=== PATIENT | female | born 1955 | race Caucasian/White ===

== ENCOUNTER → 2017-09-24 | Outpatient (CLI) | payer BC | END | disposition home or self-care (01) | LOC: KCIC MAMMO 11:33 | DX: Z12.31 Encounter for screening mammogram for malignant neoplasm of breast (principal); R05 Cough; Z87.891 Personal history of nicotine dependence | CPT/HCPCS: 71046; 77067 ==

== ENCOUNTER → 2018-04-22 | Outpatient (CLI) | payer MEDICARE ==
[2015-06-11 23:24] VITALS: BP 154/73
--- NOTE | 2018-04-22 14:13 | KCIC ---
CT of the chest without contrast 04/22/2018 INDICATION: Chronic cough COMPARISON STUDY: Chest radiograph September 24, 2017 TECHNIQUE: Multidetector CT imaging of the chest was performed without the administration of contrast. DOSING PQRS STATEMENT: One or more of the following individualized dose reduction techniques were utilized for this examination: 1. Automated exposure control 2. Adjustment of the mA and/or kV according to patient size 3. Use of iterative reconstruction technique FINDINGS: Heart size is normal. No pericardial effusion is identified. No pathologically enlarged mediastinal adenopathy is seen. Coronary calcification is noted. Centrilobular emphysematous changes are noted throughout the lungs. Subpleural blebs are noted in the right lung apex. No pneumothorax, pleural effusion, or acute appearing infiltrate is identified. A tiny 2 mm noncalcified nodule is seen in the right lower lobe (axial image 42). No other pulmonary nodules or masses are identified. Limited visualization of the upper abdomen demonstrates no acute abnormality. No acute osseous abnormalities are identified. IMPRESSION: 1. Centrilobular emphysema 2. 2 mm noncalcified nodule, right lower lobe. Given smoking history provided an time of exam, recommend follow-up CT chest in 12 months per Fleischner Society guidelines as described below. Pulmonary Nodule Followup: Fleischner Society recommendations (Radiology 2005; 237; 395-400): In a low risk patient: 4mm or less - No follow up required. >4-6mm- 12 month follow up, if unchanged, no further follow up. >6-8mm- 6-12 month follow up, then at 18-24 months if no change. >8mm- 3, 9, 24 month follow up or consideration of PET/CT. In a high risk patient: <4mm - 12 month follow up, if unchanged, then no further follow up. >4-6mm- 6-12 month follow up, then at 18-24 months if no change. >6-8mm- 3-6 month follow up, then at 9-12 months and 24 months if no change Electronically signed by: Jordan Junior MD (04/22/2018 2:10 PM) [id number]
== END | disposition home or self-care (01) ==
LOC: KCIC CT 11:07
PROVIDERS: ATTEND Family Medicine
DX: J43.2 Centrilobular emphysema (principal); I10 Essential (primary) hypertension; R91.1 Solitary pulmonary nodule; Z87.891 Personal history of nicotine dependence
CPT/HCPCS: 71250

== ENCOUNTER → 2018-07-02 | Outpatient (CLI) | payer OTHER ==
[2015-06-11 23:24] VITALS: BP 154/73
--- NOTE | 2018-07-02 15:40 | KCIC ---
MR of the right shoulder Indication: Right shoulder strain, pain for one month after fall. Technique: Standard multiplanar sequences are obtained. Findings: Artifact: No significant image degradation. Acromioclavicular joint: Degenerative, with mild undersurface mass effect. Rotator cuff: * Supraspinatus-infraspinatus tendon: Diffusely thickened and heterogeneous compatible with tendinosis. There is broad irregular partial-thickness undersurface tearing of the supraspinatus tendon and infraspinatus tendon. There is also milder bursal surface tearing of the supraspinatus tendon. No evidence of a complete through and through full-thickness rupture or retraction however. * Subscapularis tendon: Partial tear * Muscle bulk: Mild volume loss * Subacromial subdeltoid bursa: Trace effusion. Fluid: Trace glenohumeral effusion. Glenohumeral cartilage: Mild degenerative changes. Labrum: Degenerative tear of the posterosuperior labrum. There is also degeneration and possible degenerative tearing through the inferior labrum. Biceps tendon: Intact Bones: No lesion or acute fracture. Soft tissue: No acute findings. Impression: 1. Rotator cuff tendinosis. Broad partial thickness tearing, without through and through full-thickness rupture or retraction. 2. Degenerative tearing of the posterosuperior labrum, and possible inferior labrum. 3. Primary osteoarthritis. Electronically signed by: Rambo Martinez MD (07/02/2018 3:37 PM) [facility]
== END | disposition home or self-care (01) ==
LOC: KCIC MRI 14:29
PROVIDERS: ATTEND Preventive Medicine Occupational Medicine
DX: S43.491A Other sprain of right shoulder joint, initial encounter (principal); M75.101 Unspecified rotator cuff tear or rupture of right shoulder, not specified as traumatic; M19.011 Primary osteoarthritis, right shoulder; X58.XXXA Exposure to other specified factors, initial encounter; Y93.89 Activity, other specified; Y92.89 Other specified places as the place of occurrence of the external cause; Y99.8 Other external cause status
CPT/HCPCS: 73221

== ENCOUNTER → 2019-06-04 | Outpatient (CLI) | payer MEDICARE, OTHER ==
[2015-06-11 23:24] VITALS: BP 154/73
--- NOTE | 2019-06-04 15:35 | KCIC ---
EXAM: Chest CT without intravenous contrast. HISTORY: Pulmonary nodule follow-up. TECHNIQUE: Computed tomographic images of the chest were obtained without contrast. Multiplanar reformatting was performed. *One or more of the following individualized dose reduction techniques were utilized for this examination: 1. Automated exposure control. 2. Adjustment of the mA and/or kV according to patient size. 3. Use of iterative reconstruction technique. COMPARISON: 04/22/2018. FINDINGS: The heart is normal in size. There is coronary artery atherosclerosis. The aorta is normal in caliber. There is aortic atherosclerosis. No pathologically enlarged mediastinal or hilar lymph node is seen. There is no pneumothorax or pleural effusion. There is no infiltrate. There is mild pulmonary emphysema. There are right apical subpleural blebs. There is a tiny suspected granuloma within the right lower lobe. There is a 3 mm nodule within the lateral right upper lobe (series 6, image 58), new compared to the prior study. There are few additional peripheral nodular and groundglass opacities within the upper lobes measuring 2 mm. the spleen is upper normal in size. The gallbladder is surgically absent. There is degenerative change involving the spine. There is no suspicious osseous lesion. IMPRESSION: 1. No acute thoracic finding. 2. Pulmonary emphysema. 3. Tiny pulmonary nodules, the largest of which appears to be solid and measures 3 mm within the lateral right upper lobe and is new compared to the prior study. Follow-up can performed according to Fleischner Society criteria. Fleischner Society recommendations (Radiology 2017): SOLID NODULES Solitary solid nodule <6 mm - low-risk patient: no routine follow-up required - high-risk patient: optional CT at 12 months (particularly with suspicious nodule morphology and/or upper lobe location) Solitary solid nodule 6-8 mm - low-risk patient: CT at 6-12 months, then consider CT at 18-24 months - high risk patient: CT at 6-12 months, then if persistent CT at 18-24 months Solitary solid nodule >8 mm - consider CT at 3 months, PET/CT, or tissue sampling Multiple solid nodules <6 mm - low-risk patient: no routine follow-up required - high-risk patient: optional CT at 12 months Multiple solid nodules >6 mm - low-risk patient: CT at 3-6 months, then consider CT at 18-24 months - high risk patient: CT at 3-6 months, then if persistent CT at 18-24 months SUBSOLID NODULES Solitary ground glass nodule <6 mm - no routine follow-up required Solitary ground glass nodule > or = 6 mm - CT at 6-12 months, then if persistent CT every 2 years until 5 years Solitary part solid nodule > or = 6mm - CT at 3-4 months, the if persistent and solid component remains <6 mm, annual CT until 5 years Multiple subsolid nodules <6 mm - CT at 3-6 months, then if stable consider CT at 2 and 4 years in high risk patients Multiple subsolid nodules > or = 6 mm - CT at 3-6 months, then subsequent management based on the most suspicious nodule(s) Electronically signed by: Tonya Rodriguez MD (06/04/2019 3:32 PM) [place] [id number]
== END | disposition home or self-care (01) ==
LOC: KCIC CT 14:17
PROVIDERS: ATTEND Family Medicine
DX: J43.8 Other emphysema (principal); I25.10 Atherosclerotic heart disease of native coronary artery without angina pectoris; R91.8 Other nonspecific abnormal finding of lung field; I70.0 Atherosclerosis of aorta
CPT/HCPCS: 71250

== ENCOUNTER → 2019-08-18 | Outpatient (CLI) | payer MEDICARE, OTHER ==
[2015-06-11 23:24] VITALS: BP 154/73
[~2019-08-18] MED LIST: REGADENOSON 0.4 MG/5 ML DISP.SYRIN. IV ONE
--- NOTE | 2019-08-18 09:58 | CARD ---
MR#: [id number] Date of Study: 08/18/2019 Ordering Physician: YESSI ALEX, Referring Physician: YESSI ALEX, Tech: Emily Enrique APPROVED REPORT EXAM: Two-dimensional and M-mode echocardiogram with Doppler and color Doppler. Other Information Quality : AverageHR: 63bpm Technically limited study due to smoking. INDICATION COPD Dyspnea 2D DIMENSIONS RVDd2.1 (2.9-3.5cm)Left Atrium(2D)1.9 (1.6-4.0cm) IVSd1.1 (0.7-1.1cm)Aortic Root(2D)3.3 (2.0-3.7cm) LVDd4.5 (3.9-5.9cm)LVOT Diameter2.1 (1.8-2.4cm) PWd0.9 (0.7-1.1cm)LVDs2.6 (2.5-4.0cm) FS (%) 40.9 %SV65.4 ml LVEF(%)71.9 (>50%) Aortic Valve AoV Peak Chandan.102.0cm/sAoV VTI19.4cm AO Peak GR.4.2mmHgLVOT Peak Chandan.70.3cm/s LVOT VTI 15.53cmAO Mean GR.2mmHg BIJU (VMAX)1.40ln8EPW (VTI)2.72cm2 Mitral Valve MV E Dyjumaqh36.6cm/sMV DECEL NNCY857ic MV A Mwcriwhf33.0cm/sMV E Mean Gr.1mmHg MV FAT69fvP/A Ratio1.1 MVA (PHT)3.90cm2 TDI E/Lateral E'7.3E/Medial E'10.8 Pulmonary Valve PV Peak Ucjsbhmp49.8cm/sPV Peak Grad.2mmHg Tricuspid Valve TR P. Wzkfgdjm384kx/sRAP OCHJBKAP4umYq TR Peak Gr.78tdLbSVAF91dxWh Pulmonary Vein S1 Mgnsraza80.3cm/sD2 Jgopfppk69.4cm/s PVa gjdisnjn600vedf LEFT VENTRICLE The left ventricle is normal size. There is borderline to mild concentric left ventricular hypertroph y. The left ventricular systolic function is mildly decreased. The Ejection Fraction is 40-45%. There is mild global hypokinesis. Transmitral Doppler flow pattern is Grade II-pseudonormal filling dynami cs. RIGHT VENTRICLE The right ventricle is not well visualized. There is normal right ventricular wall thickness. The rig ht ventricular systolic function is normal. ATRIA The left atrium size is normal. The right atrium is moderately dilated. The interatrial septum is int act with no evidence for an atrial septal defect or patent foramen ovale as noted on 2-D or Doppler i maging. AORTIC VALVE Not well visualized. Doppler and Color Flow revealed no significant aortic regurgitation. There is no significant aortic valvular stenosis. MITRAL VALVE The mitral valve is normal in structure and function. There is no evidence of mitral valve prolapse. There is no mitral valve stenosis. Doppler and Color-flow revealed trace mitral regurgitation. TRICUSPID VALVE The tricuspid valve is normal in structure and function. Doppler and Color Flow revealed trace tricus pid regurgitation with an estimated PAP of 25 mmHg. There is no tricuspid valve stenosis. PULMONIC VALVE The pulmonic valve is not well visualized. Doppler and Color Flow revealed no pulmonic valvular regur gitation. There is no pulmonic valvular stenosis. GREAT VESSELS The aortic root is normal in size. The IVC is normal in size and collapses >50% with inspiration. PERICARDIAL EFFUSION There is no evidence of significant pericardial effusion. Critical Notification Critical Value: No <Conclusion> The left ventricular systolic function is mildly decreased. The Ejection Fraction is 40-45%. There is mild global hypokinesis. No significant valvular disease. Signed by : Yessi Alex, Electronically Approved : 08/18/2019 09:58:27
--- NOTE | 2019-08-18 12:27 | RAD ---
MR#: [id number] Date of Study: 08/18/2019 Ordering Physician: YESSI PAGE, Referring Physician: SUZANNE HERRING Tech: ROSANNE De Jesus, ARRT (R) (N) APPROVED REPORT Test Type: Pharmacological Stress Nurse/Tech: Harriet Kemp RN Test Indications: Dyspnea Cardiac History: Family history,COPD, cath 10 yrs. ago,smoker Medications: See Electronic Medical Record Medical History: See Electronic Medical Record Resting ECG: SR Resting Heart Rate: 62 bpm Resting Blood Pressure: 131/49mmHg Pretest Chest Pain: No chest pain Nurse/Tech Notes S1,S2 and lungs diminished throughout. Consent: The procedure was explained to the patient in lay terms. Informed consent was witnessed. Rahul eout was entered into [employer]. History and Stress Test performed by RT Odin (R) (N) Pharm. Details Pharmacologic stress testing was performed using 0.4mg per 5ml of regadenoson given intravenously ove r 7-10 seconds. Stress Symptoms Dyspnea POST EXERCISE Reason for Termination: Infusion complete Target HR: No Max HR: 102 bpm Max Blood Pressure: 124/55mmHg Blood Pressure response to exercise: Normal blood pressure response during stress. Heart Rate response to exercise: WNL Chest Pain: No. Arrhythmia: No. ST Change: No. INTERPRETATION Stress EKG Conclusion: The resting EKG shows a sinus rhythm and nonspecific ST-T wave changes. The stress EKG shows no evidence of inducible ischemia. No EKG evidence of stressed induced ischemia. Imaging Protocol IMAGE PROTOCOL: Rest Tc-99m/stress Tc-99m 1 day Rest: Stress: Viability: Radiopharm.Tc99m ErpsolxeyLp31r Sestamibi Mcpo29uCy 33mCi Img Date 08/18/2019 08/18/2019 Inj-Img Ovgp57mlp. 60min. Rest Admin Site:IV - Right WristAdministrator:ROSANNE De Jesus, ARRT (R)(N) Stress Admin Site: IV - Right WristAdministrator: ROSANNE De Jesus ARRT (R)(N) STRESS DATA End Diast. Vol.56.0mlAv. Heart Rate77.0bpm End Syst. Vol.19.0mlCO Index BSA0.0L/min Myocardial Mass96.0gEject. Xxhqozyo79.0% Stress Rates Pk. Fill Rate3.64EDV/secLVtime Pk. Fill 236.80msec Pk. Empty Rate4.43ESV/secLVtime Pk. Jxshm945.77msec /3 Pk. Fill0.85EDV/sec Stress Scores Regional WT1.00Summed WT2.00 Regional WM0.00Summed WM0.00 LV Perfusion The stress scans showed no significant defects. The rest scans showed no significant defects. Nuclear imaging shows no reversible ischemia or infarct. Wall Motion Left ventricular systolic function is normal with an ejection fraction of 66%. LV Perf. Quant 17 Seg. SSS0.00 17 Seg. SRS2.00 17 Seg. SDS0.00 Stress Defect Extent (% LAD)0.00Rest Defect Extent (% LAD)1.30Rev. Defect Extent (% LAD)0.00 Stress Defect Extent (% LCX) 0.00Rest Defect Extent (% LCX)0.00Rev. Defect Extent (% LCX)0.00 Stress Defect Extent (% RCA)0.00Rest Defect Extent (% RCA)1.10Rev. Defect Extent (% RCA)0.00 Stress Defect Extent (% GARETH)0.00Rest Defect Extent (% GARETH)2.80Rev. Defect Extent (% GARETH)0.00 Conclusion 1. No EKG evidence of stressed induced ischemia. 2. Nuclear imaging shows no reversible ischemia or infarct. 3. Normal left ventricular systolic function with an ejection fraction of 66%. 4. Low risk Lexiscan nuclear stress test. Signed by : Hans Lechuga MD Electronically Approved : 08/18/2019 12:27:18
--- NOTE | 2019-08-19 06:09 | RAD ---
MR#: [id number] Date of Study: 08/18/2019 Ordering Physician: YESSI PAGE, Referring Physician: YESSI PAGE, Tech: Julián Langley MBA, RDMS, RVT, RDCS, RTR APPROVED REPORT Patient Location: OUT-PATIENT Indications PAD Duplex Results A/PTransverseLongitudinal Proximal Aorta 2.5cm2.0cm Mid Aorta 2.2cm1.6cm Distal Aorta 1.4cm1.1cm Doppler VelocityWaveform Proximal Aorta 69.0 cm/sec Aorta Mid. 68.0 cm/sec Distal Aorta 91.0 cm/sec Findings Grayscale images of the abdominal aorta demonstrate mild diffuse atherosclerosis. No focal aneurysm, dissection or calcified plaque is identified. The dimensions are as noted above without any evidence of abnormalities. Critical Notification Critical Value: No <Conclusion> No evidence of abdominal aortic aneurysm on this limited study. Signed by : Yessi Page, Electronically Approved : 08/19/2019 06:09:01
--- NOTE | 2019-08-19 06:11 | RAD ---
MR#: [id number] Date of Study: 08/18/2019 Ordering Physician: YESSI PAGE, Referring Physician: YESSI PAGE, Tech: Julián Langley MBA, RDMS, RVT, RDCS, RTR APPROVED REPORT Patient Location: OUT-PATIENT Laterality:Bilateral Indications PAD Doppler Spectral Velocity Analysis Right Left pCCA 61/16 cm/spCCA 80/22 cm/s mCCA 67/20 cm/smCCA 91/24 cm/s dCCA 67/23 cm/sdCCA 83/23 cm/s Bulb 78/16 cm/sBulb 74/19 cm/s ECA 59/ cm/sECA 71/ cm/s pICA 74/24 cm/spICA 93/32 cm/s Humberto 81/24 cm/smICA 116/42 cm/s dICA 98/37 cm/sdICA 117/41 cm/s Vert. 86/ cm/sVert. 53/ cm/s Subcl. 81/ cm/sSubcl. 112/ cm/s ICA/CCA 1.46ICA/CCA 1.46 Findings Bilateral hillman scale images of the carotid vasculature demonstrates mild intimal hyperplasia with min imal diffuse plaque. No focal high-grade stenosis is identified. The spectral waveforms and velocities of the internal carotid artery are grossly within normal limits overall suggestive of 0 to less than 50% stenosis by velocity criteria. The bilateral external carotid artery velocities are grossly within normal limits. Bilateral ICA to CCA ratios are within normal limits. Bilateral vertebral velocities are grossly within normal limits. Bilateral subclavian velocities are grossly within normal limits. Critical Notification Critical Value: No <Conclusion> 1. No significant carotid occlusive disease bilaterally. Signed by : Yessi Page, Electronically Approved : 08/19/2019 06:11:06
== END | disposition home or self-care (01) ==
LOC: NM 07:58
PROVIDERS: ATTEND Internal Medicine Cardiovascular Disease
DX: I70.0 Atherosclerosis of aorta (principal); I51.7 Cardiomegaly; I73.9 Peripheral vascular disease, unspecified
CPT/HCPCS: 76770; 78452; 93017; 93306; 93880; A9500; J2785

== ENCOUNTER → 2021-03-09 | Outpatient (CLI) | payer MEDICARE, OTHER ==
[2015-06-11 23:24] VITALS: BP 154/73
--- NOTE | 2021-03-09 17:19 | KCIC ---
PQRS Compliance Statement: One or more of the following individualized dose reduction techniques were utilized for this examinat ion: 1. Automated exposure control 2. Adjustment of the mA and/or kV according to patient size 3. Use of iterative reconstruction technique CT LOW DOSE LUNG SCREEN 03/09/2021 2:33 PM Indication: Lung cancer screening. Nicotine dependence. COPD. Smoked 40+ years, one pack per day. COMPARISON: None available. TECHNIQUE: Multiple axial CT images of the chest were obtained without intravenous contrast utilizing low-dose technique. Coronal and sagittal reformats are provided. FINDINGS: Mild to moderate centrilobular pulmonary emphysema. Bronchial wall thickening compatible with nonspec ific bronchitis. Stable 3 mm solid noncalcified pulmonary nodule in the lateral right upper lobe (ser ies 6, image 77). No new or enlarging solid noncalcified pulmonary nodules. No pleural effusions, pul monary vascular congestion or pneumothorax. Heart size is within normal limits. No pericardial effusi on. Three-vessel coronary artery vascular calcifications. Thoracic aorta is normal in course and paulina cresencio. No pathologically enlarged thoracic lymph nodes within the limitations of noncontrast examinatio n. Thyroid gland is normal in appearance. Upper abdomen is normal with exception of cholecystectomy c hanges. Limited evaluation of solid abdominal viscera due to lack of intravenous contrast. IMPRESSION: Stable solid noncalcified pulmonary nodule in the subpleural lateral right upper lobe measuring 3 mm. Lung RADS Category 2, benign appearance and behavior. Recommend low-dose noncontrast chest CT in one year. Mild to moderate COPD changes as detailed above. Electronically signed by: Deidre Titus MD (03/09/2021 5:17 PM) [id number]
--- NOTE | 2021-03-09 17:34 | KCIC ---
DXA BONE DENSITY AXIAL History: Reason: ASYMPTOMATIC MENOPAUSAL STATE, OSTEOPOROSIS / Spl. Instructions: / History: Comparison: May 09, 2018. TECHNIQUE: Dual energy x-ray absorptiometry of the lumbar spine and left hip was performed. T-score o f average bone mineral density based was calculated based on standard deviations above or below the e xpected young adult normal value. Diagnostic definitions were established by the [employer] ation. FINDINGS: The average bone mineral density associated with L1-L4 is 0.872 g/cm^2, corresponding with a T-score of -1.6. Mildly increased compared to prior. The average total bone mineral density associated with left hip is 0.518 g/cm^2, corresponding with a T-score of -3.5. Decreased compared to prior. Refer to the worksheets for full detail. IMPRESSION: 1. Osteoporosis. Average bone mineral density yields a T-score of -2.5 or less. Fracture risk is hig h. 2. Decreased bone mild density within the left hip compared to prior. 3. Mildly increased bone marrow density within the lumbar spine. Electronically signed by: Wolf Estrella DO (03/09/2021 5:31 PM) [id number]
== END ==
LOC: KCIC CT 14:27
PROVIDERS: ATTEND Physician Assistant
DX: Z12.2 Encounter for screening for malignant neoplasm of respiratory organs (principal); J43.2 Centrilobular emphysema; R91.1 Solitary pulmonary nodule; M81.0 Age-related osteoporosis without current pathological fracture; F17.218 Nicotine dependence, cigarettes, with other nicotine-induced disorders; I25.10 Atherosclerotic heart disease of native coronary artery without angina pectoris; Z90.49 Acquired absence of other specified parts of digestive tract
CPT/HCPCS: 71271; 77080

== ENCOUNTER → 2021-09-22 | Day surgery (SDC) | payer MEDICARE, OTHER ==
[2015-06-11 23:24] VITALS: BP 154/73
[~2021-09-22] MED LIST changes: +LIDOCAINE 1%/EPI 1:100,000 20 ML VIAL. ONE; -REGADENOSON 0.4 MG/5 ML DISP.SYRIN. IV ONE
--- NOTE | 2021-09-22 10:43 | PDOC4 ---
Operative Note Operative Note Date: September 22, 2021 at 10:42 AM Preoperative diagnosis: Right forearm mass Postoperative diagnosis: Same Procedure: Excision of forearm mass Surgeon: Blas Specimen: Right forearm mass Dictation: Patient is a 66-year-old female has had a history of basal cell carcinoma has a lesion on her right forearm that is concerning. The procedure of excision was explained to the patient detail risk-benefit were also discussed including bleeding infection alternatives to this procedure also discussed with the patient and he seemed to understand and give a verbal written consent had procedure performed. Patient was taken to the minors room placed in the supine position her right forearm was prepped and draped usual sterile fashion using ChloraPrep. An area around the mass was injected with 1% lidocaine with epinephrine once this was anesthetized a elliptical incision was made with 15 blade scalpel the mass was approximately 2 cm with a 1 cm margin was excised sharply and completely and sent for pathology. The wound was then closed in a single layer 4-0 subcuticular Monocryl Mastisol Steri-Strips and island dressing were applied. Patient tolerated procedure well was discharged home in stable condition all sponge instrument needle counts listed as correct estimated blood loss 10 mL RA DAWSON MD Sep 22, 2021 10:43
--- NOTE | 2021-09-22 10:45 | DISCH ---
DISCHARGE INSTRUCTIONS Condition on Discharge Condition on Discharge: Stable Activity After Discharge Activity Instructions for Disc: Activity as tolerated Diet after Discharge Diet after Discharge: Regular Wound Incision Care Other wound/incision instructi: May shower in 24 hours Contacting the DRFrank after DC Call your doctor for: If your condition worsens Follow-Up Follow up with: Dr. Dawson in 2 weeks RA DAWSON MD Sep 22, 2021 10:45
--- NOTE | 2021-09-25 18:06 | PATHOLOGY ---
[facility] Accession Number: [id number] . 01 Material submitted: . forearm - RIGHT FOREARM MASS. Modifiers: right . 02 Diagnosis: Skin and subcutaneous tissue, right forearm mass excision: - Verrucous keratosis, chronically inflamed. - Solar degeneration. (JPM:олег; 09/25/2021) S 09/25/2021 0956 Local . 02 Comment: There is no evidence of malignancy. (JPM:олег; 09/25/2021) . 02 Electronically signed: . Bernardo Lima MD, Pathologist NPI- [id number] . 01 Gross description: . The specimen is received in formalin, labeled "Cathi Cramer, right forearm mass". Received is an ellipse of skin with underlying soft tissue measuring 2.5 x 1.0 x 0.7 cm in greatest dimensions. The epidermal surface displays a poorly defined, irregular in contour, pink-white and slightly wrinkled lesion measuring 0.8 x 0.7 cm. The surgical margin is inked. The specimen is sectioned into 11 pieces and entirely submitted in cassette A1-A3, with the bisected tips submitted in cassette A3. ([facility]; 09/22/2021) NRI/NRI 09/22/2021 1734 Local . 02 Pathologist provided ICD-10: L57.0 . 02 CPT . 173769 Specimen Comment: A courtesy copy of this report has been sent to [phone], [phone] Specimen Comment: [id number] Specimen Comment: Report sent to / DR KENNEDY Specimen Comment: A duplicate report has been generated due to demographic updates. Performed at: [address], [place] [id number] MD Km Bhat MD Phone: [phone] Performed at: [address] [id number] MD Bernardo Lima MD Phone: [phone]
--- NOTE | 2021-09-28 10:27 | PDOC1 ---
History and Physical Date of Admission Date of Admission DATE: 09/22/21 TIME: 10:24 Identification/Chief Complaint Chief Complaint Left forearm skin lesion Source Source: Patient History of Present Illness History of Present Illness 66-year-old female has had a history of basal cell carcinomas concerned about a skin lesion on her left forearm been present for a number of years and getting larger Past Medical History Cardiovascular: No pertinent hx Pulmonary: No pertinent hx GI: No pertinent hx Heme/Onc: No pertinent hx Hepatobiliary: No pertinent hx Psych: No pertinent hx Rheumatologic: No pertinent hx Infectious disease: No pertinent hx ENT: No pertinent hx Renal/: No pertinent hx Endocrine: No pertinent hx Dermatology: No pertinent hx Past Surgical History Past Surgical History: No pertinent history Family History Family History: No Significant Social History Smoke: No ALCOHOL: none Drugs: None Current Medications Current Medications Current Medications Lidocaine/ Epinephrine (LIDOCAINE 1%-EPI 1:100,000 Multi-Dose) 20 ml STK-MED ONCE .ROUTE ; Start 09/22/21 at 10:08; Stop 09/26/21 at 13:05; Status DC Allergies Allergies: Coded Allergies: morphine (Verified Adverse Reaction, Intermediate, Nausea, 09/22/21) Physical Exam General: Alert, Oriented X3, Cooperative, No acute distress HEENT: Atraumatic, EOMI Lungs: Clear to auscultation, Normal air movement Heart: RRR, no murmurs Abdomen: Normal bowel sounds, Soft, No tenderness Rectal Exam: not examined Extremities: No edema Skin: Other (3 cm raised skin lesion left forearm concerning for basal cell carcinoma) Neuro: Normal speech Psych/Mental Status: Mental status NL VTE Prophylaxis Ordered VTE Prophylaxis Devices: No VTE Pharmacological Prophylaxi: No Assessment/Plan Assessment/Plan Suspicious skin lesion left forearm plan excision Justifications for Admission Other Justification RA DAWSON MD Sep 28, 2021 10:26
== END | disposition home or self-care (01) ==
LOC: SURG 09:49
PROVIDERS: ATTEND Surgery
DX: L57.0 Actinic keratosis (principal); C44.612 Basal cell carcinoma of skin of right upper limb, including shoulder; J43.9 Emphysema, unspecified; F17.210 Nicotine dependence, cigarettes, uncomplicated; Z79.899 Other long term (current) drug therapy; Z98.890 Other specified postprocedural states; Z88.6 Allergy status to analgesic agent
CPT/HCPCS: 11404; 88305; J3490